=== PATIENT | female | born 1985 | race Caucasian/White ===

== ENCOUNTER → 2019-09-18 09:20 | Outpatient (CLI) | payer OTHER, SELFPAY ==
--- NOTE | ~2019-09-18 | US_ITS ---
EXAMINATION: US OB >= 14 weeks Fetus DATE: 09/18/2019 10:16 INDICATION: Second trimester anatomic survey TECHNIQUE: Real-time ultrasound of the pelvis was performed. COMPARISON: None. FINDINGS: There is a single living fetus in breech presentation. The placenta is anterior and 4.4 cm from the i nternal cervical os. heart rate is 139 beats per minute (bpm). cardiac activity and feta l movement are noted. The amniotic fluid index is subjectively normal. Multiple anomalies are identified. 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 The four chamber heart is not well demonstrated. The stomach appears to be intrathoraci c in location. There are multiple cysts of the kidneys. The following anatomy was identified as normal: urinary bladder spine ventricles cisterna magna cerebellum The following biometric data were obtained: Biparietal diameter (BPD): 3.7 cm; head circumference (HC): 13.9 cm; abdominal circumference (AC): 11 .1 cm; femur length (FL): 2.2 cm. These measurements are concordant. Estimated weight is 176 g +/- 26 g, which correlates with the <3rd percentile when 02/11/2020 is used as estimated date of delivery. As single measurements, these parameters are each equal to the following estimated gestational ages w ith ranges of +/- 2 standard deviations: BPD: 17 weeks 3 days ( 16 weeks 2 days - 18 weeks 5 days). HC: 17 weeks 2 days ( 16 weeks 1 days - 18 weeks 4 days). AC: 17 weeks 0 days ( 15 weeks 2 days - 18 weeks 5 days). FL: 16 weeks 6 days ( 15 weeks 3 days - 18 weeks 2 days). estimated gestational age based solely on measurements from this exam is 17 weeks 1 days +/- 1 weeks 1 days. IMPRESSION: 1. Single living fetus in breech presentation. 2. Estimated weight is 176 g +/- 26 g, which correlates with the <3rd percentile when 02/11/2020 is used as estimated date of delivery. 3. Multiple suspected anomalies. Level two ultrasound is recommended. These findings and recommendations were discussed with Dr. Becky Lewis M.D. at 1351 hours on 08/23. Reviewed, dictated and finalized at location A. 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 Single living fetus in breech presentation. 2. Estimated weight is 176 g +/- 26 g, which correlates with the <3rd per centile when 02/11/2020 is used as estimated date of delivery. 3. Multiple suspected anomalies. Level two ultrasound is recommended. These findings and recommendations were discussed with Anam Méndez at 1351 hours on 09/18/2019.
== END ==
PROVIDERS: PCP Internal Medicine; Visit Provider Obstetrics & Gynecology
DX: Z36.9 Encounter for antenatal screening, unspecified (principal)
CPT/HCPCS: 76805

== ENCOUNTER → 2022-12-22 13:17 | Outpatient (CLI) | payer OTHER, SELFPAY ==
--- NOTE | ~2022-12-22 | US_ITS ---
Limited Abdominal Sonogram: Real-time sonographic imaging of the right upper quadrant was performed. Clinical History: Right upper quadrant pain Findings: The liver appears normal with no evidence of mass lesion or bile duct dilatation. Main por derek vein demonstrates normal direction of flow. The gallbladder is well distended, and appears normal with no evidence of gallstone. There is a 5 mm nonmobile well gallbladder wall polyp. The common pam e duct measures 3 mm. The visualized pancreas, aorta, and IVC are unremarkable. Right kidney measure s 9.4 cm in length, without hydronephrosis. Impression: 5 mm gallbladder wall polyp. Reviewed, dictated and finalized at location . Impression: 5 mm gallbladder wall polyp.
== END ==
PROVIDERS: PCP Physician Assistant Medical; Visit Provider Physician Assistant Medical
DX: K82.4 Cholesterolosis of gallbladder (principal); R10.11 Right upper quadrant pain
CPT/HCPCS: 76705

== ENCOUNTER 2022-12-29 10:04 | Outpatient (CLI) | payer OTHER, SELFPAY ==
--- NOTE | ~2022-12-29 | NM_ITS ---
EXAMINATION: NM hepatobiliary wo pharm DATE: 12/29/2022 13:44 CDT INDICATION: Right upper quadrant pain COMPARISON: Ultrasound dated 12/22/2022 TECHNIQUE: 4.8 mCi Tc-99m mebrofenin (Choletec) was administered intravenously. Scintigraphic images of the abdomen were obtained for one hour. At the 1 hour time point, the patient drank 8 oz Ensure, and imaging was continued for 60 minutes. Gallbladder ejection fraction was calculated by the technol ogist. FINDINGS: There is normal clearance of radiotracer from the blood pool. There is homogeneous tracer u ptake by the liver. Activity progresses to the bowel and gallbladder. The gallbladder ejection fract ion is 48%. Note that with this technique, normal GBEF >= 33%. IMPRESSION: 1. Normal hepatobiliary scan. Reviewed, dictated and finalized at location B.
== END 2022-12-29 10:05 | disposition home or self-care (01) ==
PROVIDERS: PCP Physician Assistant Medical; Visit Provider Physician Assistant Medical
DX: R10.11 Right upper quadrant pain (principal)
CPT/HCPCS: 78226; A9537

== ENCOUNTER 2023-01-26 10:25 | Outpatient (CLI) | payer OTHER, SELFPAY ==
[2023-01-26 11:14] LABS: Hematocrit 37.7 % (37.0-47.0); Hemoglobin 12.7 g/dL (12.0-15.0); Mean Corpuscular HGB Conc 33.7 g/dl (32-36); Mean Corpuscular Hemoglobin 30.5 pg (26-34); Mean Corpuscular Volume 90.6 fl (80-100); Mean Platelet Volume 9.6 fl (7.4-10.4); Platelet Count Result 201 k/mm3 (150-375); Red Blood Count 4.16 M/mm3 (4.2-5.4); Red Cell Distribution Width 11.7 % (11.5-14.5); White Blood Count 5.2 K/mm3 (4.5-10.0)
[2023-01-26 13:42] LABS: Alanine Aminotransferase 15 U/L (6-35); Albumin Level 4.2 g/dL (3.5-5.1); Alkaline Phosphatase 31 U/L (38-126); Amylase 71 U/L (30-110); Anion Gap 6 mmol/L (8-16); Aspartate Amino Transferase 21 U/L (14-36); Bilirubin,Total 0.8 mg/dL (0.2-1.3); Blood Urea Nitrogen 14 mg/dL (7-17); CRP < 0.5 mg/dL (<1.0); Calcium 8.8 mg/dL (8.4-10.2); Carbon Dioxide 28 mmol/L (22-30); Chloride 104 mmol/L (98-107); Estimated Glomerular Filt Rate > 60; Glucose 78 mg/dL (65-110); Lipase 88 U/L (23-300); Potassium 3.7 mmol/L (3.4-5.0); Sodium 138 mmol/L (137-145)
[2023-01-26 14:33] LABS: Thyroid Stimulating Hormone Reflex 0.578 uIU/mL (0.465-4.68)
[2023-01-26 16:05] LABS: Erythrocyte Sedimentation Rate 6 mm/hr (0-20)
== END 2023-01-26 10:26 | disposition home or self-care (01) ==
LOC: ANHLAB 10:26
PROVIDERS: PCP Physician Assistant Medical; Visit Provider Nurse Practitioner
DX: K82.4 Cholesterolosis of gallbladder (principal); M54.9 Dorsalgia, unspecified; R10.13 Epigastric pain; R11.0 Nausea
CPT/HCPCS: 36415; 80053; 82150; 83690; 84443; 85027; 85652; 86140

== ENCOUNTER 2024-07-23 07:49 | Outpatient (CLI) | payer OTHER, SELFPAY ==
--- NOTE | ~2024-07-23 | US_ITS ---
Limited Abdominal Sonogram: Real-time sonographic imaging of the right upper quadrant was performed. Clinical History: Gallbladder polyp COMPARISON: 12/22/2022 Findings: The liver appears normal with no evidence of mass lesion or bile duct dilatation. Main por derek vein demonstrates normal direction of flow. The gallbladder is well distended, and demonstrates s table 5 mm gallbladder wall polyp. The common bile duct measures 2 mm. The visualized pancreas, aort a, and IVC are unremarkable. Impression: Stable 5 mm gallbladder wall polyp. Reviewed, dictated and finalized at location M. 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
== END 2024-07-23 07:50 | disposition home or self-care (01) ==
PROVIDERS: PCP Physician Assistant Medical; Visit Provider Nurse Practitioner
DX: K82.4 Cholesterolosis of gallbladder (principal)
CPT/HCPCS: 76705

== ENCOUNTER 2024-07-26 00:09 | Day surgery (SDC) | payer OTHER, SELFPAY ==
[2024-07-17 12:48] VITALS: BMI 23.3
--- NOTE | 2024-07-25 18:44 | WPDANESEPP ---
Anes - Eval Pre Procedure Procedure: Operation Date: 07/26/24 07:30 Proposed Procedures p Esophagogastroduodenoscopy - Larry Kaur MD Date/Time: 07/25/24 18:44 Surgeon: Natasha Pre Op Diagnosis: Epigastric pain,Dysphagia Patient Data Age: 39 Gender: F Height: 1.65 m Weight: 63.6 kg Allergies Allergy/AdvReac Type Severity Reaction Status Date / Time omeprazole Allergy Intermediate mouth sores Uncoded 07/17/24 12:51 Home Medications Medication Instructions Recorded Confirmed Type famotidine 20 mg tablet 20 mg PO PRN PRN Heartburn 07/17/24 07/17/24 History pantoprazole 40 mg tablet,delayed 40 mg PO DAILY PRN Heartburn 07/17/24 07/17/24 History release sertraline 25 mg tablet 25 mg PO DAILY 07/17/24 07/17/24 History sucralfate 1 gram tablet 1 g PO PRN PRN Heartburn 07/17/24 07/17/24 History Patient hx anesthesia problems: none Family hx anesthesia problems: none Results Review: All pre-operative results and documents have been reviewed as part of the pre-operative evaluation. [facility] Past Medical History Medical History Acute sinusitis Encounter for routine follow-up Encounter for supervision of normal first , first trimester Encounter for supervision of normal first , second trimester Encounter for supervision of normal first , third trimester Encounter for supervision of normal in third trimester Encounter for supervision of other normal , first trimester Encounter for supervision of other normal , second trimester Epigastric pain Gallbladder polyp Mid back pain Nausea URI (upper respiratory infection) Urine, incontinence, stress female Surgical History Surgical History (Updated 07/25/24 @ 18:46 by Josefina Freeman CRNA) H/O foot surgery Family History Family History Grandparent Family history of malignant neoplasm of breast Social History Social History Smoking status: Never smoker Second hand tobacco smoke exposure: No Alcohol intake: current Substance use: never Substance use type: does not use Lack of Transportation: No Lack of Food: Never True Current Housing: I Have Housing Concerned About Future Housing: No Difficulty Paying Gas/Electric Bills: No Difficulty Paying for Meds: No Currently Unemployed: No Difficulty w/ Childcare or Family Care: No Living arrangements: with family Occupation/Education: 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
[2024-07-26 06:27] VITALS: BP 124/87; PULSE 93; RESP 18; TEMP 36.3; O2SAT 100; BMI 23.3
[2024-07-26 06:31] LABS: BEDSIDEPREGUCG Negative (Negative)
[2024-07-26] MEDS: LACTATED RINGERS 1,000 ML 150 ML IV CONT (06:35)
--- NOTE | 2024-07-26 06:41 | P.PNAN_ITS ---
Anes - Initial Pre Proc Eval Procedure: Operation Date: 07/26/24 07:30 Proposed Procedures p Esophagogastroduodenoscopy - Larry Kaur MD Date/Time: 07/26/24 06:41 Surgeon: Larry Kaur MD Pre Op Diagnosis: Epigastric pain,Dysphagia Patient Data Age: 39 Gender: F Height: 1.65 m Weight: 63.8 kg Last Vital Signs Temp 36.3 C L 07/26/24 06:27 Pulse 93 07/26/24 06:27 Resp 18 07/26/24 06:27 BP 124/87 07/26/24 06:27 Pulse Ox 100 07/26/24 06:27 O2 Del Method Room Air 07/26/24 06:27 Allergies Allergy/AdvReac Type Severity Reaction Status Date / Time omeprazole Allergy Intermediate mouth sores Uncoded 07/26/24 06:24 Home Medications Medication Instructions Recorded Confirmed Type famotidine 20 mg tablet 20 mg PO PRN PRN Heartburn 07/17/24 07/26/24 History pantoprazole 40 mg tablet,delayed 40 mg PO DAILY PRN Heartburn 07/17/24 07/26/24 History release sertraline 25 mg tablet 25 mg PO DAILY 07/17/24 07/26/24 History sucralfate 1 gram tablet 1 g PO PRN PRN Heartburn 07/17/24 07/26/24 History Laboratory Tests 07/26/24 06:27 POC Urine HCG, Qual Negative (Negative) Patient hx anesthesia problems: none Family hx anesthesia problems: none Results Review: All pre-operative results and documents have been reviewed as part of the pre- operative evaluation. [facility] Past Medical History Medical History Acute sinusitis Encounter for routine follow-up Encounter for supervision of normal first , first trimester Encounter for supervision of normal first , second trimester Encounter for supervision of normal first , third trimester Encounter for supervision of normal in third trimester Encounter for supervision of other normal , first trimester Encounter for supervision of other normal , second trimester Epigastric pain Gallbladder polyp Mid back pain Nausea URI (upper respiratory infection) Urine, incontinence, stress female Surgical History Surgical History (Updated 07/25/24 @ 18:46 by Josefina Freeman CRNA) H/O foot surgery Family History Family History Grandparent Family history of malignant neoplasm of breast Social History Social History Smoking status: Never smoker Second hand tobacco smoke exposure: No Alcohol intake: current Substance use: never Substance use type: does not use Lack of Transportation: No Lack of Food: Never True Current Housing: I Have Housing Concerned About Future Housing: No Difficulty Paying Gas/Electric Bills: No Difficulty Paying for Meds: No Currently Unemployed: No Difficulty w/ Childcare or Family Care: No Living arrangements: with family 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/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: 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 Gender identity (if verbalized by the patient): Female Sexual Orientation (if Verbalized by the Patient): Straight or Heterosexual Spiritual care concerns: No Anes - Eval Final PreProcedure Day of Procedure 07/26/24 06:41 Patient weight: normal Heart: regular rate and rhythm Lungs: clear to auscultation Airway: Mallampati scale class 1 Neurological: alert and oriented Last oral intake: >/= 8 hours ASA classification: II Emergent: no Anesthetic plan: proceed Anesthesia type and monitoring: general GIVS and standard monitoring Results Review: All pre-operative results and documents have been reviewed as part of the pre- operative evaluation. Informed Consent: The patient's anesthetic plan and its attendant risks and benefits were discussed with the patient/family/POA. Questions were solicited and answers provided to the satisfaction of the patient/family/POA.
--- NOTE | 2024-07-26 07:32 | PM.IMHP ---
H&P: HPI History of Present Illness Date/Time: 07/26/24 07:32 Chief Complaint: Dysphagia and epigastric pain. Narrative: this patient has been suffering from recurrent epigastric pain for over a year, especially exacerbated by some food items and which she takes NSAIDs for headaches. In addition, she feels occasional dysphagia to solid food, especially when it is sticky. Review of Systems Review of Systems: All systems reviewed & are unremarkable except as noted in HPI and below PMFSH Past Medical History Medical History Acute sinusitis Encounter for routine follow-up Encounter for supervision of normal first , first trimester Encounter for supervision of normal first , second trimester Encounter for supervision of normal first , third trimester Encounter for supervision of normal in third trimester Encounter for supervision of other normal , first trimester Encounter for supervision of other normal , second trimester Epigastric pain Gallbladder polyp Mid back pain Nausea URI (upper respiratory infection) Urine, incontinence, stress female Surgical History Surgical History (Updated 07/25/24 @ 18:46 by Josefina Freeman CRNA) H/O foot surgery Family History Family History Grandparent Family history of malignant neoplasm of breast Social History Social History Smoking status: Never smoker Second hand tobacco smoke exposure: No Alcohol intake: current Substance use: never Substance use type: does not use Lack of Transportation: No Lack of Food: Never True Current Housing: I Have Housing Concerned About Future Housing: No Difficulty Paying Gas/Electric Bills: No Difficulty Paying for Meds: No Currently Unemployed: No Difficulty w/ Childcare or Family Care: No Living arrangements: with family 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/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: 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 Gender identity (if verbalized by the patient): Female Sexual Orientation (if Verbalized by the Patient): Straight or Heterosexual Spiritual care concerns: No Meds Home Medications and Allergies Home Medications Medication Instructions Recorded Confirmed Type famotidine 20 mg tablet 20 mg PO PRN PRN Heartburn 07/17/24 07/26/24 History pantoprazole 40 mg tablet,delayed 40 mg PO DAILY PRN Heartburn 07/17/24 07/26/24 History release sertraline 25 mg tablet 25 mg PO DAILY 07/17/24 07/26/24 History sucralfate 1 gram tablet 1 g PO PRN PRN Heartburn 07/17/24 07/26/24 History Allergies Allergy/AdvReac Type Severity Reaction Status Date / Time omeprazole Allergy Intermediate mouth sores Uncoded 07/26/24 06:24 Vital Signs Vital Signs - 24 hr 07/26/24 06:27 Temperature 97.4 F L Pulse Rate 93 Respiratory Rate 18 Blood Pressure 124/87 Pulse Oximetry 100 Oxygen Delivery Room Air Exam Const: General: cooperative and healthy appearing Resp: Effort & Inspection: normal respiratory effort and able to speak in complete sentences Auscultation: clear to auscultation bilaterally Cardio: Rate: regular rate Rhythm: regular rhythm GI: Inspection: normal to inspection GI Palp: No No hepatosplenomegaly present Auscultation: normal bowel sounds Rectal Exam: deferred Skin: General skin exam: normal color Psych: Appearance: grossly normal Mental Status: mental status grossly normal Assessment and Plan Assessment and plan (1) Dysphagia: Code(s): R13.10 - Dysphagia, unspecified Status: Acute Assessment and Plan: The patient is deemed a good candidate for the procedure. Consent signed. Will proceed. (2) Epigastric pain: Code(s): R10.13 - Epigastric pain Status: Acute
[2024-07-26 07:46] VITALS: BP 106/70; PULSE 82; RESP 20; O2SAT 98
[2024-07-26 07:56] VITALS: BP 108/72; PULSE 73; RESP 24; O2SAT 99
[2024-07-26 08:06] VITALS: BP 113/77; PULSE 65; RESP 21; O2SAT 100
== END 2024-07-26 08:27 | disposition home or self-care (01) ==
PROVIDERS: Anesthesiology; PCP Registered Nurse; Referring Provider Nurse Practitioner; Visit Provider Internal Medicine Gastroenterology
PROC: 0DJ08ZZ Inspection of Upper Intestinal Tract, Via Natural or Artificial Opening Endoscopic (ICD-10-PCS; CPT 43235; principal; 2024-07-26 07:30)
DX: K20.0 Eosinophilic esophagitis (principal); K29.51 Unspecified chronic gastritis with bleeding; K29.80 Duodenitis without bleeding
CPT/HCPCS: 43239; 88305; J2003; J2704; J7120